=== PATIENT | female | born 1985 | race Hispanic/Latino ===

== ENCOUNTER → 2024-04-01 | Outpatient (CLI) | payer OTHER, MEDICARE ==
--- NOTE | 2024-04-01 20:51 | HMCSR ---
APPROVED REPORT EXAM: Two-dimensional and M-mode echocardiogram with Doppler and color Doppler. INDICATION ICD: R00.2 Palpitations 2D Dimensions RVDd3.2 cmLVEF(%)60.2 (>50%)LVED Vol(simp.)140.0 mL IVSd0.9 (0.7-1.1cm)FS(%)32 %LVES Vol(simp.)61.0 mL LVDd4.8 (3.8-5.6cm)Ao Root(2D)2.9 (2.0-3.7cm)LVEF(%, simp.)57 % PWd0.9 (0.7-1.1cm)LVOT diam2.2 (1.8-2.4cm)LA ESV INDEX (BP)26.91 mL/m2 LVDs3.3 (2.5-4.0cm)IVC diam1.4 cm Aortic Valve AoV Vmax1.0 m/Omari Peak GR4.1 mmHgLVOT Vmax0.8 m/s AoV VTI0.2 mAo Mean GR2.3 mmHgLVOT VTI0.18 m ARMAND (VMAX)3.0 cm2AVA (VTI) 3.0 cm2 Mitral Valve MV E Vmax96.7 cm/sDECEL Blgk688 ms MV A Vmax79.1 cm/sP 1/2 T76 ms E/A ratio1.2MVA (PHT)2.9 cm2 MR Max PG94 mmHg TDI E/E' Gsrwsx63.9E/E' Sdiygme84.2 Pulmonary Valve PV Vmax1.2 m/sPV VTI0.29 mPV Mean GR3 mmHg PV Peak GR5.5 mmHgPI End Ydana. Rod 0.9 cm/s Tricuspid Valve TR Vmax2.1 m/sRAP (EST) 3 ziEaRCNC59.9 mmHg TR Peak GR17.9 mmHg Left Ventricle The left ventricle structure and function is normal. Mid inferoseptal hypokinesis. There is normal le ft ventricular wall thickness. LVEF is 55-60%. Left ventricular filling pattern is normal for age. Right Ventricle The right ventricle is normal size. Right ventricular systolic function is borderline reduced. Atria The left atrium size is normal. The right atrium size is normal. Aortic Valve Aortic valve is trileaflet. Aortic valve leaflets are sclerotic (mainly the non-coronary cusp), but o pen well. No aortic regurgitation is present. There is no aortic valvular stenosis. Mitral Valve The mitral valve is mildly thickened. 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 Mild to moderate posteriorly directed jet of MR (see image 62). Tricuspid Valve The tricuspid valve leaflets appear normal. There is trace tricuspid regurgitation. Pulmonic Valve The pulmonic valve leaflets are thin and pliable; valve motion is normal. There is trace pulmonic sulma vular regurgitation. Great Vessels The aortic root is normal in size. The IVC is normal in size and collapses >50% with inspiration. Pericardium No pericardial effusion. Conclusion The left atrium size is normal. There is normal left ventricular wall thickness. Mid inferoseptal hypokinesis. LVEF is 55-60%. Left ventricular filling pattern is normal for age. Aortic valve is trileaflet. Aortic valve leaflets are sclerotic (mainly the non-coronary cusp), but open well. The mitral valve is mildly thickened. Myxomatous changes of the anterior mitral leaflet with borderline prolapse. Mild to moderate posteriorly directed jet of MR (see image 62). No pericardial effusion.
== END | disposition home or self-care (01) ==
LOC: SHCH 07:50
PROVIDERS: ATTEND Internal Medicine
DX: I08.0 Rheumatic disorders of both mitral and aortic valves (principal); R00.2 Palpitations; I99.8 Other disorder of circulatory system
CPT/HCPCS: 93306